=== PATIENT | female | born 1970 | race Caucasian/White ===

== ENCOUNTER 2019-03-04 12:23 | Emergency (ER) | payer MEDICAID ==
[~2019-03-04] VITALS: Ht 162.6 cm; Wt 81.8 kg
[~2019-03-04 12:23] MED LIST: CALC-642 PO; FERR325T29 PO; MULT1TAB74 PO; VENL75CA55 PO
[2019-03-04 13:00] VITALS: BP 149/95
[2019-03-04] MEDS ORDERED: HYDR-4353 PO (14:30)
== END 2019-03-04 15:06 | disposition home or self-care (01) ==
LOC: ER 12:23
DX: M79.675 Pain in left toe(s) (principal); F12.90 Cannabis use, unspecified, uncomplicated; Z98.84 Bariatric surgery status; Z98.890 Other specified postprocedural states; Z56.0 Unemployment, unspecified; Z79.899 Other long term (current) drug therapy
CPT/HCPCS: 73630; 99283